=== PATIENT | female | born 1990 | race Caucasian/White ===

== ENCOUNTER 2016-11-07 20:28 | Emergency (ER) | payer OTHER ==
[~2016-11-07] VITALS: Ht 152.4 cm; Wt 76.0 kg
[2016-11-07 20:31] VITALS: Ht 152.4 cm; Wt 76.0 kg
[2016-11-07] MEDS ORDERED: BEN50 PO (20:56)
[2016-11-07] MEDS ORDERED: DEXAMETHASONE 4 MG TAB PO ONE (21:00)
[2016-11-07 21:28] VITALS: BP 120/80; PULSE 90; RESP 18; TEMP 98
--- NOTE | 2016-11-07 21:28 | ERD ---
ER Documentation Chief Complaint Date/Time DATE: 11/07/16 TIME: 21:22 Chief Complaint FACIAL TINGLING AND SWELLING AFTER TAKING EMERGEN-C AND LESLIE SELTZER HPI 26-year-old female complaining of facial swelling since this afternoon. Patient stated that she took Emergen-C at 4 PM, and Leslie-Moody at 5 PM. She noticed tingling is swelling of her face shortly after taking Leslie-Moody. She took 50 mg Benadryl at home at 7:20 PM. Patient stated that she never had Leslie-Moody or aspirin before. Denies shortness of breath. ROS All systems reviewed and are negative except as per history of present illness. Medications Home Meds Active Scripts Diphenhydramine Hcl* (Benadryl*) 50 Mg Cap, 50 MG PO Q6H Y for ITCHING/RASH, # 30 CAP Prov:MARISELATORRES Chinyere. [employer] OPERATOR 11/07/16 Allergies Allergies: Coded Allergies: acetaminophen (Verified Allergy, Mild, swelling, itching, 11/07/16) chlorpheniramine (Verified Allergy, Mild, swelling, itching, 11/07/16) dextromethorphan (Verified Allergy, Mild, swelling, itching, 11/07/16) phenylpropanolamine (Verified Allergy, Mild, swelling, itching, 11/07/16) pseudoephedrine (Verified Allergy, Mild, swelling, itching, 11/07/16) PMhx/Soc Medical and Surgical Hx: pt denies Medical Hx History of Surgery: No Anesthesia Reaction: No Hx Neurological Disorder: No Hx Respiratory Disorders: No Hx Cardiac Disorders: No Hx Psychiatric Problems: No Hx Miscellaneous Medical Probl: No Hx Alcohol Use: No Hx Tobacco Use: No Smoking Status: Never smoker Physical Exam Vitals Vital Signs Date Time Temp Pulse Resp B/P Pulse Ox O2 Delivery O2 Flow Rate FiO2 11/07/16 20:31 98.0 108 18 124/81 99 Physical Exam General: Well-developed, well-nourished, conscious and coherent, in no distress Skin: Warm and dry without rash, good texture and turgor Head: Normocephalic without evidence of trauma Eyes: Sclera and conjunctivae normal; pupils equal, round, and reactive to light; extraocular movements are intact. Swelling noted surrounding bilateral eyes. Mouth/throat: Mucous membranes are moist. Posterior pharynx clear without erythema or exudates. Slight swelling on the bilateral lips, no pharyngeal swelling. Neck: Supple without meningismus or adenopathy. Carotids are equal. Trachea midline. No bruits or JVD Chest: Normal AP diameter. Good expansion without retractions. Nontender. Lungs are clear to auscultate bilaterally with good tidal volume Heart: Regular rate and rhythm. No murmur, rub, or gallops heard Neuro: Alert and oriented 4, GCS 15. Cranial nerves grossly intact. Motor and sensory exams nonfocal. Moves all extremities. Speech clear. Gait normal Results 24 hrs Current Medications Medications (Trade) Dose Ordered Sig/Yajaira Route PRN Reason Start Time Stop Time Status Last Admin Dose Admin Dexamethasone (Decadron) 12 mg ONCE ONCE PO 11/07/16 21:00 11/07/16 21:01 DC 11/07/16 21:15 Procedures/MDM Well-appearing 26-year-old female presented to ED with what appears to be a allergic reaction, likely from Leslie-Moody. No sign of anaphylaxis. I doubt orbital or periorbital cellulitis. Patient given Decadron 12 mg p.o. in the ED. Patient reports symptom improvement after Decadron. Patient took Benadryl 1 hour ago, no additional doses needed at this time Patient appears well, stable for discharge and outpatient management. Medical decision making shared with patient and family. Education provided to patient and family. Patient and family expressed understanding of the plan. Medications on discharge: Benadryl. Follow-up: Primary care provider in 2-3 days or return to ED if worse. Disclaimer: Inadvertent spelling and grammatical errors are likely due to EHR/ dictation software use and do not reflect on the overall quality of patient care. Also, please note that the electronic time recorded on this note does not necessarily reflect the actual time of the patient encounter. Departure Diagnosis: Primary Impression: Allergic reaction Encounter type: initial encounter Qualified Code: T78.40XA - Allergic reaction, initial encounter Condition: Good Patient Instructions: Allergic Reaction, Drug Referrals: [facility] YOU HAVE RECEIVED A MEDICAL SCREENING EXAM AND THE RESULTS INDICATE THAT YOU DO NOT HAVE A CONDITION THAT REQUIRES URGENT TREATMENT IN THE EMERGENCY DEPARTMENT. FURTHER EVALUATION AND TREATMENT OF YOUR CONDITION CAN WAIT UNTIL YOU ARE SEEN IN YOUR DOCTORS OFFICE WITHIN THE NEXT 1-2 DAYS. IT IS YOUR RESPONSIBILITY TO MAKE AN APPOINTMENT FOR FOLOW-UP CARE. IF YOU HAVE A PRIMARY DOCTOR --you should call your primary doctor and schedule an appointment IF YOU DO NOT HAVE A PRIMARY DOCTOR YOU CAN CALL OUR PHYSICIAN REFERRAL HOTLINE AT IF YOU CAN NOT AFFORD TO SEE A PHYSICIAN YOU CAN CHOSE FROM THE FOLLOWING [facility] [address] [facility] [address] [facility] [facility] [address] [facility] [address] [facility]. [facility] [address] [facility] [facility]. [address] Additional Instructions: Call your primary care doctor TOMORROW for an appointment during the next 2-3 days.See the doctor sooner or return here if your condition worsens before your appointment time. TORRES ANTONIO NP Nov 07, 2016 21:28
== END 2016-11-07 20:59 | disposition home or self-care (01) ==
LOC: FTE 20:28
DX: T39.011A Poisoning by aspirin, accidental (unintentional), initial encounter (principal); T45.2X1A Poisoning by vitamins, accidental (unintentional), initial encounter; R40.2412 Glasgow coma scale score 13-15, at arrival to emergency department
CPT/HCPCS: Z7502; Z7610; 99283